=== PATIENT | male | born 1950 | race Caucasian/White ===

== ENCOUNTER 2023-06-18 05:36 | Day surgery (SDC) | payer BC, MEDICARE ==
[2023-06-10 15:42] LABS: BILIRUBIN,URINE NEGATIVE (Neg); CLARITY,URINE SLIGHTLY CLOUDY (Clear); COLOR,URINE YELLOW (Yellow); GLUCOSE, URINE NEGATIVE (Neg); KETONES,URINE NEGATIVE (Neg); LEUKOCYTE ESTERASE ,URINE NEGATIVE (Neg); NITRITES, URINE NEGATIVE (Neg); OCCULT BLOOD,URINE NEGATIVE (Neg); PROTEIN,URINE NEGATIVE (Neg)
[2023-06-10 15:45] LABS: BASOPHILS % (AUTO) 0.7 % (0-1); EOSINOPHILS # (AUTO) 0.1 X10'3 (0-0.9); EOSINOPHILS % (AUTO) 2.5 % (0-6); LYMPHOCYTES # (AUTO) 1.4 X10'3 (1.1-4.8); LYMPHOCYTES % (AUTO) 28.6 % (21-51); MEAN CORPUSCULAR HEMOGLOBIN 32.5 PG (27.0-31.0); MEAN CORPUSCULAR HGB CONC 33.4 g/dL (33.0-36.5); MEAN CORPUSCULAR VOLUME 97.3 FL (78-98); MEAN PLATELET VOLUME 8.1 FL (7.4-10.4); MONOCYTES # (AUTO) 0.6 X10'3 (0-0.9); MONOCYTES % (AUTO) 12.9 % (2-12); NEUTROPHILS # (AUTO) 2.6 X10'3 (1.8-7.7); NEUTROPHILS % (AUTO) 55.3 % (42-75); PRE OP HEMATOCRIT 44.4 % (42.0-52.0); PRE OP HEMOGLOBIN 14.8 g/dL (14.0-17.9); PRE OP PLATELET COUNT 177 X10'3 (140-440); PRE OP WHITE BLOOD COUNT 4.8 10'3 (4.8-10.8); RED BLOOD COUNT 4.56 X10'6 (4.70-6.10); RED CELL DISTRIBUTION WIDTH 14.7 % (11.5-14.5)
[2023-06-10 15:50] LABS: UA COLLECTION TYPE CLN CATCH MIDSTREAM
[2023-06-10 15:57] LABS: ALBUMIN 3.4 G/DL (3.4-5.0); ALBUMIN/GLOBULIN RATIO 0.7 (1.1-1.5); ALKALINE PHOSPHATASE 55 IU/L (46-116); BLOOD UREA NITROGEN 20 MG/DL (7-18); BUN/CREATININE RATIO 16.7 (10.0-20.0); CALCIUM 9.1 MG/DL (8.5-10.1); CHLORIDE 104 MMOL/L (99-107); PRE OP ALT 25 U/L (30-65); PRE OP ANION GAP 5 (8-16); PRE OP AST 32 U/L (10-37); PRE OP BILIRUB, TOTAL 0.8 MG/DL (0.0-1.0); PRE OP SODIUM 140 MMOL/L (135-145); TOTAL CARBON DIOXIDE 30.9 MMOL/L (24-32); TOTAL PROTEIN 8.3 G/DL (6.4-8.2); eGFR 59 ML/MIN
[2023-06-10 15:59] LABS: AMORPHOUS PHOSPHATES 2+
[2023-06-10 16:00] LABS: PRE OP GLUCOSE 127 MG/DL (70-104)
[2023-06-10 16:01] LABS: MUCUS STRANDS MODERATE /LPF (Neg)
[2023-06-10 16:03] LABS: BACTERIA,URINE NONE SEEN /HPF (Neg); RBC,URINE NONE SEEN /HPF (0-2); SQUAMOUS EPITHELIAL CELL,UR NONE SEEN /LPF (FEW); WBC,URINE 0-4 /HPF (0-4)
[~2023-06-18] VITALS: Ht 167.6 cm; Wt 69.4 kg
[2023-06-18] VITALS (10 sets, daily range): BP systolic 101–129; BP diastolic 60–85; PULSE 65–84; RESP 13–17; TEMP 97.9; O2SAT 92–99
[~2023-06-18 05:36] MED LIST: ALFU10TA10 PO; ANAS1TAB10 PO; APIX5TAB3 PO; BUPR1FIL20 SL; DULO30CA52 PO; ERGO400C PO; FINA5TAB11 PO; IMMU100V4 IV; MULT-1085 PO; PANT40TA54 PO; TEST200V33 IM; cefazolin 2gm/D5W 100mL 100 ML IV ONE; famotidine 20mg tablet PO ONE; ringers solution, lacted 1,000 ML IV SCH
[2023-06-18] MEDS ORDERED: BUPIVAcaine/PF 2.5 mg/ml (0.25%) 30ml vial ONE (06:54)
[2023-06-18] MEDS ORDERED: midazolam 1 mg/ML 2ml injection ONE (07:13)
[2023-06-18] MEDS ORDERED: fentaNYL/PF 50MCG/1 ML 2ML syringe ONE ×2 (07:13→08:30)
[2023-06-18] MEDS ORDERED: glycopyrrolate 0.2mg/ml inj ONE (07:15)
[2023-06-18] MEDS ORDERED: rocuronium 10mg/ml inj IV ONE (07:15)
[2023-06-18] MEDS ORDERED: ondansetron/PF 4mg/2ml inj ONE (07:15)
[2023-06-18] MEDS ORDERED: LIDOcaine 2% (20mg/ml) 5ml vial ONE (07:15)
[2023-06-18] MEDS ORDERED: dexamethasone sod phosphate 4mg/ml inj. ONE (07:15)
[2023-06-18] MEDS ORDERED: neostigmine methylsulfate 1 MG/ML 10ml vial ONE (07:15)
[2023-06-18] MEDS ORDERED: propofol inj 20 ML IV ONE (07:15)
[2023-06-18] MEDS ORDERED: fentaNYL/PF 50MCG/1 ML 2ML syringe IV PRN ×2 (07:20)
[2023-06-18] MEDS ORDERED: ketamine 50mg/5ml syringe IV PRN (07:20)
[2023-06-18] MEDS ORDERED: hydrALAZINE 20mg/ml inj. IV PRN (07:20)
[2023-06-18] MEDS ORDERED: ringers solution, lacted 1,000 ML IV SCH (07:20)
[2023-06-18] MEDS ORDERED: labetalol 20mg/4ml (5mg/ml) syringe IV PRN (07:20)
[2023-06-18] MEDS ORDERED: ketorolac trometh. 30mg/ml inj. IV ONE (07:20)
[2023-06-18] MEDS ORDERED: HYDROmorphone/PF 0.2 MG/ML SYRINGE IV PRN (07:20)
[2023-06-18] MEDS ORDERED: ondansetron/PF 4mg/2ml inj IV PRN (07:20)
[2023-06-18] MEDS ORDERED: sevoflurane 250ml liquid IH ONE (07:35)
[2023-06-18] MEDS ORDERED: dexmedetomidine 200mcg/2ml inj. IV ONE (07:53)
[2023-06-18] MEDS ORDERED: acetaminophen 1,000mg/100ml IV 100 ML IV ONE (08:00)
[2023-06-18] MEDS ORDERED: BUPIVAcaine/PF 2.5mg/ml (0.25%) 10ml vial IJ ONE (08:02)
[2023-06-18] MEDS ORDERED: hydrALAZINE 20mg/ml inj. IV ONE (08:06)
--- NOTE | 2023-06-18 08:48 | NUR ---
Received from OR via , accompanied by Anesthesiologist SHAMA and report given by Anesthesiolgist. VSS. PATIENT IS ON THE MASK AT 10 LITERS. IV IN R WRIST 20G INTACT. LAPSITES X 3 WITH DERMABOND Addendum: 06/18/23 at 1013 by Eileen Liu RN Amended: Links added.
[2023-06-18] MEDS: HYDROmorphone/PF 0.2 MG/ML SYRINGE IV PRN ×2 (09:15→09:25)
[2023-06-18] MEDS ORDERED: oxyCODONE SR 10mg (sust. release) tab PO ONE (09:45)
--- NOTE | 2023-06-18 10:14 | NUR ---
DC HOME: ALL DISCHARGE CRITERIA HAS BEEN MET. VSS, PAIN AT TOLERABLE LEVEL. ABLE TO SAFELY AMBULATE AND TRANSFER SELF. IV TAKEN OUT WITHOUT ANY COMPLICATIONS. ALL DISCHARGE INSTRUCTIONS COVERED WITH PATIENT AND ALL QUESTIONS ANSWERED. PATIENT TAKEN OUT VIA WHEELCHAIR TO PERSONAL VEHICLE WHERE FAMILY/FRIEND DROVE PATIENT HOME.
== END 2023-06-18 09:58 | disposition home or self-care (01) ==
LOC: PAS 05:36
PROVIDERS: ATTEND Surgery
DX: K42.0 Umbilical hernia with obstruction, without gangrene (principal); G61.81 Chronic inflammatory demyelinating polyneuritis; K21.9 Gastro-esophageal reflux disease without esophagitis; N40.0 Benign prostatic hyperplasia without lower urinary tract symptoms; G47.33 Obstructive sleep apnea (adult) (pediatric); I48.91 Unspecified atrial fibrillation; F32.A Depression, unspecified; F41.9 Anxiety disorder, unspecified; G89.29 Other chronic pain; Z86.19 Personal history of other infectious and parasitic diseases; F10.21 Alcohol dependence, in remission; Z87.891 Personal history of nicotine dependence; Z98.890 Other specified postprocedural states; Z79.899 Other long term (current) drug therapy; Z81.1 Family history of alcohol abuse and dependence; Z82.5 Family history of asthma and other chronic lower respiratory diseases; Z80.1 Family history of malignant neoplasm of trachea, bronchus and lung
CPT/HCPCS: 36415; 49594; 80053; 81001; 82948; 85025; J0131; J0360; J0690; J1100; J1170; J1885; J2250; J2405; J2704; J2710; J3010; J3490; J7030; J7120; Z7506; Z7508; Z7512; A4618; A7000

== ENCOUNTER 2025-08-25 12:33 | Outpatient (CLI) | payer MEDICARE ==
[~2025-08-25 12:33] MED LIST changes: -ALFU10TA10 PO; +ALFU10TA47 PO; -cefazolin 2gm/D5W 100mL 100 ML IV ONE; -famotidine 20mg tablet PO ONE; -ringers solution, lacted 1,000 ML IV SCH
== END 2025-08-25 23:59 | disposition home or self-care (01) ==
LOC: LAB 12:33
PROVIDERS: ATTEND Nurse Practitioner
DX: K75.9 Inflammatory liver disease, unspecified (principal); Z79.60 Long term (current) use of unspecified immunomodulators and immunosuppressants; Z79.899 Other long term (current) drug therapy
CPT/HCPCS: 36415; 80074; 82595; 82977; 83615; 86706